=== PATIENT | female | born 1975 | race Caucasian/White ===

== ENCOUNTER 2023-01-31 20:54 | Emergency (ER) | payer BC, OTHER ==
[2023-01-31] MEDS ORDERED: FAMOTIDINE 20 MG/50 ML IVPB 20 MG/50 ML MG IVPB ONE ×2 (21:23→21:44)
[2023-01-31 21:40] VITALS: BP 115/73; PULSE 80; RESP 19; TEMP 99; BMI 28.3
== END 2023-01-31 22:40 | disposition home or self-care (01) ==
LOC: FER 20:54
PROC: 3E033GC Introduction of Other Therapeutic Substance into Peripheral Vein, Percutaneous Approach (ICD-10-PCS; principal; 2023-01-31)
PROC: 3E033GC Introduction of Other Therapeutic Substance into Peripheral Vein, Percutaneous Approach (ICD-10-PCS; 2023-01-31)
DX: R21 Rash and other nonspecific skin eruption (principal); T78.40XA Allergy, unspecified, initial encounter
CPT/HCPCS: 99284-25